=== PATIENT | female | born 2000 | race Caucasian/White ===

== ENCOUNTER → 2018-12-22 12:42 | Outpatient (CLI) | payer MEDICAID ==
[2018-12-22 14:09] LABS: HCG SERUM POSITIVE (NEGATIVE)
== END | disposition home or self-care (01) ==
LOC: D.MRI 12:42
PROVIDERS: Radiology Diagnostic Radiology; ATTEND Nurse Practitioner Family
DX: M54.5 Low back pain (principal)

== ENCOUNTER → 2019-01-04 14:10 | Outpatient (CLI) | payer MEDICAID ==
[2019-01-04 14:56] LABS: HCG SERUM POSITIVE (NEGATIVE)
== END | disposition home or self-care (01) ==
LOC: D.MRI 08:30
PROVIDERS: General Practice; ATTEND Nurse Practitioner Family
DX: M54.5 Low back pain (principal)

== ENCOUNTER → 2019-01-20 10:18 | Outpatient (CLI) | payer MEDICAID ==
[2019-01-20 10:57] LABS: HCG SERUM NEGATIVE (NEGATIVE)
== END | disposition home or self-care (01) ==
LOC: D.MRI 10:18
PROVIDERS: Specialist; ATTEND Nurse Practitioner Family
DX: M54.5 Low back pain (principal)

== ENCOUNTER → 2019-02-02 11:12 | Outpatient (CLI) | payer MEDICAID ==
--- NOTE | ~2019-02-02 | HEMODYNAMI ---
PATIENT:ELAN WEISS MEDICAL RECORD: [id number] : 89 LOCATION:[facility] ADMISSION DATE: 02/02/19 Generatedon:02/02/201913:28 Patient name: ELAN WEISS Patient #: [id number] SSN: : 2000 Date of study: 02/02/2019 Page: Of Hemodynamic Procedure Report Patient Data Patient Demographics First Name: ELAN Gender: Female Last Name: ISELA : 2000 [facility] Initial: KEYUR Age: 18 year(s) Patient #: [id number] Race: Unknown Additional ID: [id number] Contact details Address: [address] [place] [address] State: [place] City: [place] Zip code: [address] Past Medical History Allergies: No known allergies Admission Admission Data Admission Date: 02/02/2019 Admission Time: 11:12 Procedure Procedure Types Cath Procedure Peripheral Cath Diagnostic Procedure Miscellaneous Epidural Steroid Injection Procedure Description Procedure Date Procedure Date: 02/02/2019 Procedure Start Time: 13:14 Procedure Staff Name Function Philippe Land MD Performing Physician Christopher Ramirez RT Monitor Procedure Data Cath Procedure Fluoroscopy Diagnostic fluoroscopy Total fluoroscopy Time: 0.4 time: 0.4 min min Diagnostic fluoroscopy Total fluoroscopy dose: 9 dose: 9 mGy mGy Hemodynamics Rest Pre Cath Intra NCS Post Cath Procedure Log Time Note 12:52:12 Christopher Ramirez RT (R) (CV) sent for patient. Start room use. 12:52:22 Time tracking: Regular hours (M-F 7:00 - 5:00) 12:52:42 Patient received from Outpatients to IR Alert and oriented. Tansferred to table in Prone position. 12:52:43 Correct patient and procedure confirmed by team. 12:52:45 Full Disclosure recording started 12:52:46 - 12:52:49 Pre-procedure instructions explained to patient. 12:52:50 Pre-op teaching completed and patient verbalized understanding. 12:53:30 Patient allergic to No known allergies 12:53:41 Is patient on blood thinner?No 12:53:54 Lumbar area was prepped with betadine and draped in sterile fashion 13:13:54 Physician arrived 13:13:55 --------ALL STOP TIME OUT------ 13:13:55 Final Timeout: patient, procedure, and site verified with staff and physician. All members of the team are in agreement. 13:13:58 Lumbar site verified by team. 13:14:05 Sedation plan: Local Anesthetic Medication:Lidocaine 13:14:16 Procedure started. 13:14:21 Local anesthetic to Lumbar area with Lidocaine 1% by Philippe Land MD.INITIAL ACCESS ONLY 13:14:24 KIT EPIDURAL CATHETERIZATION opened to sterile field. 13:26:39 Procedure ended.(Physican Out) 13:27:26 Fluoroscopy time 00.40 minutes. 13:27:29 Flurop Dose total: 9 13:27:29 Fluoroscopy dose: 9 mGy 13:27:49 bandaide applied site stable pt sent home Device Usage Item Name Manufacture Quantity Catalog Hospital Part Current [facility] Lot# / Number Charge Number Stock Stock Serial# Code KIT EPIDURAL Teleflex 1 [id number] CATHETERIZATION Signature Audit [place] Stage Time Signature Unsigned Intra-Procedure 02/02/2019 Christopher 1:28:14 PM James RT (R) (CV) Signatures Monitor : Christopher Signature : James RT Date : Time : [facility] [address] [place] [address]
== END | disposition home or self-care (01) ==
LOC: D.SP 11:12 → D.RAD 13:00
PROVIDERS: ATTEND Nurse Practitioner Family
DX: M51.36 Other intervertebral disc degeneration, lumbar region (principal)

== ENCOUNTER → 2019-07-05 09:30 | Outpatient (CLI) | payer MEDICAID ==
--- NOTE | ~2019-07-05 | HEMODYNAMI ---
PATIENT:ELAN WEISS MEDICAL RECORD: [id number] : [birth year] [id number] ADMISSION DATE: 07/05/19 Generatedon:07/05/201910:53 Patient name: ELAN WEISS Patient #: [id number] SSN: : 2000 Date of study: 07/05/2019 Page: Of Hemodynamic Procedure Report Patient Data Patient Demographics Procedure consent was obtained First Name: ELAN Gender: Female Last Name: ISELA : 2000 [facility] Initial: KEYUR Age: 18 year(s) Patient #: [id number] Race: Unknown Additional ID: [id number] Contact details Address: [address] [place] [address] State: [place] City: [place] Zip code: [address] Past Medical History Allergies: No known allergies Admission Admission Data Admission Date: 07/05/2019 Admission Time: 9:30 Procedure Procedure Types Cath Procedure Peripheral Cath Diagnostic Procedure Miscellaneous Epidural Steroid Injection Procedure Description Procedure Date Procedure Date: 07/05/2019 Procedure Start Time: 10:40 Procedure Staff Name Function Philippe Land MD Performing Physician Christopher Ramirez RT Monitor Rekha Howe RT Scrub Procedure Data Cath Procedure Fluoroscopy Diagnostic fluoroscopy Total fluoroscopy Time: 0.7 time: 0.7 min min Diagnostic fluoroscopy Total fluoroscopy dose: 10 dose: 10 mGy mGy Hemodynamics Rest Pre Cath Intra NCS Post Cath Procedure Log Time Note 18:40:47 BANDAIDE APPLIED SITE STABLE PT SENT HOME 18:40:47 PT STATES NOT PREGANANT ON PERIOD 10:32:37 Christopher Ramirez RT (R) (CV) sent for patient. Start room use. 10:33:00 Patient received from Other to IR Alert and oriented. Tansferred to table in Prone position. 10:33:03 Signed procedure consent form obtained from patient. 10:33:05 Correct patient and procedure confirmed by team. 10:33:06 Full Disclosure recording started 10:33:06 - 10:33:07 Pre-procedure instructions explained to patient. 10:33:07 Pre-op teaching completed and patient verbalized understanding. 10:33:38 Patient allergic to No known allergies 10:33:44 Is patient on blood thinner?No 10:34:39 Lumbar area was prepped with betadine and draped in sterile fashion 10:39:25 Physician arrived 10:39:25 --------ALL STOP TIME OUT------ 10:39:26 Final Timeout: patient, procedure, and site verified with staff and physician. All members of the team are in agreement. 10:39:30 Lumbar site verified by team. 10:39:37 Sedation plan: Local Anesthetic Medication:Lidocaine 10:39:52 Procedure started. 10:40:02 Local anesthetic to Lumbar area with Lidocaine 1% by Philippe Land MD.INITIAL ACCESS ONLY 10:40:10 KIT EPIDURAL CATHETERIZATION opened to sterile field. 10:52:06 Procedure ended.(Physican Out) 10:52:38 Fluoroscopy time 00.70 minutes. 10:52:41 Fluoroscopy dose: 10 mGy 10:52:41 Flurop Dose total: 10 Device Usage Item Name Manufacture Quantity Catalog Hospital Part Current [facility] Lot# / Number Charge Number Stock Stock Serial# Code KIT EPIDURAL Teleflex 1 [id number] CATHETERIZATION Signature Audit [place] Stage Time Signature Unsigned Intra-Procedure 07/05/2019 Christopher 10:53:23 AM James RT (R) (CV) [facility] [address] [place] [address]
== END | disposition home or self-care (01) ==
LOC: D.RAD 07-02 10:00
PROVIDERS: ATTEND Nurse Practitioner Family
DX: M51.36 Other intervertebral disc degeneration, lumbar region (principal)

== ENCOUNTER → 2019-11-09 11:35 | Outpatient (CLI) | payer BC ==
--- NOTE | ~2019-11-09 | HEMODYNAMI ---
PATIENT:ELAN WEISS MEDICAL RECORD: [id number] : [birth year] [id number] ADMISSION DATE: 11/09/19 Generatedon:11/09/201912:30 Patient name: ELAN WEISS Patient #: [id number] SSN: : 2000 Date of study: 11/09/2019 Page: Of Hemodynamic Procedure Report Patient Data Patient Demographics Procedure consent was obtained First Name: ELAN Gender: Female Last Name: ISELA : 2000 [facility] Initial: KEYUR Age: 19 year(s) Patient #: [id number] Race: Unknown Additional ID: [id number] Contact details Address: [address] [place] [address] State: [place] City: [place] Zip code: [address] Past Medical History Allergies: No known allergies Admission Admission Data Admission Date: 11/09/2019 Admission Time: 11:35 Procedure Procedure Types Cath Procedure Peripheral Cath Diagnostic Procedure Miscellaneous Joint Aspiration w/US Procedure Description Procedure Date Procedure Date: 11/09/2019 Procedure Start Time: 12:14 Procedure Staff Name Function Philippe Land MD Performing Physician Christopher Ramirez RT Monitor Rekha Howe RT Monitor Procedure Data Cath Procedure Fluoroscopy Diagnostic fluoroscopy Total fluoroscopy Time: 1.4 time: 1.4 min min Diagnostic fluoroscopy Total fluoroscopy dose: 24 dose: 24 mGy mGy Hemodynamics Rest Pre Cath Intra NCS Post Cath Procedure Log Time Note 12:06:16 Christopher Ramirez RT (R) (CV) sent for patient. Start room use. 12:07:02 Patient received from Outpatients to IR Alert and oriented. Tansferred to table in Supine position. 12:07:06 Signed procedure consent form obtained from patient. 12:07:11 Correct patient and procedure confirmed by team. 12:07:11 ECG and BP/O2 sat monitors applied to patient. 12:07:22 - 12:07:22 - 12:07:23 - 12:07:23 Full Disclosure recording started 12::27 Pre-procedure instructions explained to patient. ::27 Pre-op teaching completed and patient verbalized understanding. 12:07:30 Patient NPO since Midnight. 12:08:01 Lumbar area was prepped with betadine and draped in sterile fashion 12:09:21 pt states not 12:13:04 Physician arrived 12:13:04 --------ALL STOP TIME OUT------ 12:13:05 Final Timeout: patient, procedure, and site verified with staff and physician. All members of the team are in agreement. 12:13:09 Lumbar site verified by team. 12:13:14 Sedation plan: Local Anesthetic Medication:Lidocaine 12::34 Procedure started. 12:14:40 Local anesthetic to Lumbar area with Lidocaine 1% by Philippe Land MD.INITIAL ACCESS ONLY 12:14:41 KIT EPIDURAL CATHETERIZATION opened to sterile field. 12:29:24 Procedure ended.(Physican Out) 12::35 Fluoroscopy time 01.40 minutes. 12::37 Flurop Dose total: 24 ::37 Fluoroscopy dose: 24 mGy 12::59 BANDAIDE APPLIED SITE STABLE PT SENT HOME Device Usage Item Name Manufacture Quantity Catalog Hospital Part Current [facility] Lot# / Number Charge Number Stock Stock Serial# Code KIT EPIDURAL Teleflex 1 [id number] CATHETERIZATION Signature Audit [place] Stage Time Signature Unsigned Intra-Procedure 11/09/2019 Christopher 12:30:31 PM [place] RT (R) (CV) [facility] [address] [place] [address]
== END | disposition home or self-care (01) ==
LOC: D.RAD 10-25 13:00
PROVIDERS: ATTEND Orthopaedic Surgery
DX: M51.36 Other intervertebral disc degeneration, lumbar region (principal)